=== PATIENT | female | born 1995 | race Caucasian/White ===

== ENCOUNTER 2022-03-11 22:01 | Emergency (ER) | payer BC ==
[~2022-03-11] VITALS: Ht 170.2 cm; Wt 54.5 kg
[2022-03-11 22:58] VITALS: BP 118/76; PULSE 64; TEMP 98.7
[2022-03-12] MEDS ORDERED: ZYRTEC 10MG10 MG PO (05:39)
[2022-03-13] MEDS ORDERED: PREDNISONE50 MG PO (14:01)
[2022-03-13] MEDS ORDERED: PEPCID 20MG TAB20 MG PO (14:01)
== END 2022-03-11 23:35 | disposition left against medical advice (07) ==
LOC: COL.ER 22:01
DX: L50.9 Urticaria, unspecified (principal)

== ENCOUNTER 2022-03-12 03:43 | Emergency (ER) | payer BC ==
[~2022-03-12] VITALS: Ht 170.2 cm; Wt 54.5 kg
[2022-03-12 04:04] VITALS: TEMP 98
[2022-03-12] MEDS ORDERED: ZYRTEC 10MG10 MG PO (05:39)
[2022-03-12 05:49] VITALS: BP 112/76; PULSE 82
[2022-03-13] MEDS ORDERED: PREDNISONE50 MG PO (14:01)
[2022-03-13] MEDS ORDERED: PEPCID 20MG TAB20 MG PO (14:01)
== END 2022-03-12 06:49 | disposition home or self-care (01) ==
LOC: COL.ER 03:43
DX: L50.9 Urticaria, unspecified (principal)
CPT/HCPCS: J8540